=== PATIENT | female | born 1950 | race Caucasian/White ===

== ENCOUNTER 2019-10-07 10:51 | Outpatient (CLI) | payer MEDICARE, BC, SELFPAY ==
--- NOTE | 2019-10-07 | ECG_ITS ---
Measurements Intervals [place] Rate: 86 P: 57 WV: 175 QRS: 33 QRSD: 109 T: 42 QT: 378 QTc: 453 Interpretive Statements SINUS RHYTHM NORMAL ECG Electronically Signed On 10-07-2019 11:29:59 CDT by Sunadr Garcia D.O.
[2019-10-07 12:42] LABS: Blood Urea Nitrogen 10 mg/dL (7-17); Calcium 7.9 mg/dL (8.4-10.2); Carbon Dioxide 22 mmol/L (22-30); Chloride 96 mmol/L (98-107); Estimated Glomerular Filt Rate > 60; Glucose 95 mg/dL (65-105); Potassium 4.3 mmol/L (3.4-5.0); Sodium 131 mmol/L (137-145)
== END 2019-10-07 10:52 | disposition home or self-care (01) ==
PROVIDERS: PCP Internal Medicine; Visit Provider Podiatrist Foot & Ankle Surgery
DX: Z01.818 Encounter for other preprocedural examination (principal); R03.0 Elevated blood-pressure reading, without diagnosis of hypertension; E11.42 Type 2 diabetes mellitus with diabetic polyneuropathy
CPT/HCPCS: 36415; 80048; 93005

== ENCOUNTER 2019-12-20 10:03 | Outpatient (CLI) | payer MEDICARE, BC, SELFPAY ==
[2019-12-20 10:40] LABS: IFOB Positive Control Positive; Immunochemical Fecal Occult Bl Negative (N)
[2019-12-24 16:55] LABS: H pylori Ag Stool Not Detected (Not Detected)
== END 2019-12-20 10:04 | disposition home or self-care (01) ==
PROVIDERS: PCP Internal Medicine; Visit Provider Surgery
DX: R10.13 Epigastric pain (principal); Z87.19 Personal history of other diseases of the digestive system
CPT/HCPCS: 82274; 87338

== ENCOUNTER 2020-03-09 01:42 | Outpatient (CLI) | payer MEDICARE, BC, SELFPAY ==
[2020-03-09 18:20] LABS: SARS-CoV-2 RNA PCR Negative
== END 2020-03-09 01:43 | disposition home or self-care (01) ==
LOC: ANHCOVIDDT 01:43
PROVIDERS: PCP Internal Medicine; Visit Provider Internal Medicine Gastroenterology
DX: Z01.812 Encounter for preprocedural laboratory examination (principal); Z11.59 Encounter for screening for other viral diseases
CPT/HCPCS: 87635; C9803; U0003

== ENCOUNTER 2020-03-11 01:47 | Day surgery (SDC) | payer MEDICARE, BC, SELFPAY ==
[2020-03-03 15:47] VITALS: BMI 28.4
--- NOTE | 2020-03-11 10:03 | SUR.PREOP ---
PT INFORMED DR URENA WILL BE APPROXIMATELY 1 HR LATE
[2020-03-11 10:05] VITALS: BP 146/65; PULSE 75; RESP 18; TEMP 36.3; O2SAT 100
[2020-03-11] MEDS: LACTATED RINGERS 1,000 ML 150 ML IV CONT (10:23)
[2020-03-11 10:31] LABS: Glucose Point of Care 153 (65-105)
--- NOTE | 2020-03-11 11:52 | WPDANESEPPF ---
Anes - Initial Pre Proc Eval Procedure: Operation Date: 03/11/20 11:30 Proposed Procedures p Colonoscopy - Wolf Mendieta DO Date/Time: 03/11/20 11:52 Surgeon: Wolf Mendieta DO Pre Op Diagnosis: lower abd pain Patient Data Age: 69 Gender: F Height: 5 ft 6 in Weight: 80.6 kg Last Vital Signs Temp 97.3 F L 03/11/20 10:05 Pulse 75 03/11/20 10:05 Resp 18 03/11/20 10:05 BP 146/65 H 03/11/20 10:05 Pulse Ox 100 03/11/20 10:05 Allergies Allergy/AdvReac Type Severity Reaction Status Date / Time doxycycline Allergy Severe Tongue Verified 03/11/20 10:01 swelling adhesive Allergy Mild rash Verified 03/11/20 10:01 Influenza Virus Vaccines Allergy Mild Hives Verified 03/11/20 10:01 Sulfa (Sulfonamide Allergy Mild Hives Verified 03/11/20 10:01 Antibiotics) triamcinolone Allergy Mild Rash Verified 03/11/20 10:01 tramadol AdvReac nausea, Verified 03/11/20 10:01 dizziness Home Medications Medication Instructions Recorded Confirmed Type conjugated estrogens 0.45 mg tablet 0.45 mg PO DAILY 07/29/19 03/11/20 History oxybutynin chloride 10 mg 10 mg PO DAILY 07/29/19 03/11/20 History tablet,extended release 24 hr Synthroid 175 mcg tablet 175 mcg PO DAILY #90 tablet NS 10/30/19 03/11/20 Rx omeprazole 20 mg capsule,delayed 20 mg PO DAILY 12/17/19 03/11/20 History release glimepiride 4 mg tablet 4 mg PO BID #180 tablet 01/25/20 03/11/20 Rx metformin 1,000 mg tablet 1,000 mg PO BID #180 tablet 01/25/20 03/11/20 Rx hydrochlorothiazide 12.5 mg tablet 12.5 mg PO DAILY #90 tablet 02/03/20 03/11/20 Rx lisinopril 10 mg tablet 10 mg PO DAILY #90 tablet 02/03/20 03/11/20 Rx cetirizine 10 mg tablet 5 mg PO DAILY PRN 02/17/20 03/11/20 History famotidine 10 mg PO BID 03/03/20 03/11/20 History Laboratory Tests 03/11/20 10:29 POC Capillary Glucose 153 mg/dl H mg/dl (65-105) Patient hx anesthesia problems: none Family hx anesthesia problems: none PMFSH Social History Social History Smoking status: Never smoker Second hand tobacco smoke exposure: No Alcohol intake: current Substance use: never Anes - Eval Final PreProcedure Day of Procedure 03/11/20 11:52 Patient weight: normal Heart: regular rate and rhythm Lungs: clear to auscultation Airway: Mallampati scale class II Neurological: alert and oriented Last oral intake: >/= 8 hours ASA classification: III Emergent: no Anesthetic plan: proceed Anesthesia type and monitoring: general GIVS and standard monitoring Informed Consent: The patient's anesthetic plan and its attendant risks and benefits were discussed with the patient/family/POA. Questions were solicited and answers provided to the satisfaction of the patient/family/POA.
--- NOTE | 2020-03-11 12:22 | PM.IMHP ---
H&P: HPI History of Present Illness Date/Time: 03/11/20 12:22 Chief complaint: lower abd pain Narrative: Reason for visit colonoscopy. This very pleasant lady seen in consultation at the request of the primary. Impression: The video very pleasant lady with some chronic abdominal pain and alternating constipation and diarrhea. This compatible with a IBS. She does have a history adenomatous colon polyps and a family history of colorectal cancer. HTN. Diabetes mellitus. Peripheral neuropathy. Recommendation: Colonoscopy. History: This very pleasant lady's here for colonoscopy. She has a family history of colorectal cancer and a personal history of multiple adenomatous colon polyps. She had been having some lower abdominal discomfort which he described as aching and sharp in nature. She also has upper abdominal pain. The pain is unaffected by eating or defecation. She does have alternating constipation and diarrhea. The hematochezia, melena and acholic stools are denied. She is here for colonoscopy. Physical examination: General: very pleasant patient in no acute distress. HEENT: Head was normocephalic sclerae is clear mouth without masses neck was supple. Heart: Rate rhythm regular without S3 or S4. Lungs: CTA. Abdomen: Soft with no guarding or rigidity. Bowel sounds were active. Neurologic: Cranial nerves 2 through 12 intact. No focal defects. No clonus. Musculoskeletal system: Revealed no joint tenderness or swelling no muscle atrophy. Extremities: Reveal no significant edema. Skin: Warm and dry with normal turgor. Mental status: intact. Patient is alert and oriented. Review of Systems Review of Systems: All systems reviewed & are unremarkable except as noted in HPI and below PMFSH Past Medical History Medical History (Updated 03/11/20 @ 12:22 by Wolf Mendieta DO) Adenomatous colon polyp Diabetes mellitus Hypertension Hypothyroidism IBS (irritable bowel syndrome) Neuropathy Vitamin B 12 deficiency Surgical History Surgical History (Updated 03/11/20 @ 12:22 by Wolf Mendieta DO) H/O: hysterectomy History of esophagogastroduodenoscopy (EGD) History of thyroid surgery x2 Hx laparoscopic cholecystectomy Hx of colonoscopy Status post right foot surgery Social History Social History Smoking status: Never smoker Second hand tobacco smoke exposure: No Alcohol intake: current Substance use: never Meds Home Medications and Allergies Home Medications Medication Instructions Recorded Confirmed Type conjugated estrogens 0.45 mg tablet 0.45 mg PO DAILY 07/29/19 03/11/20 History oxybutynin chloride 10 mg 10 mg PO DAILY 07/29/19 03/11/20 History tablet,extended release 24 hr Synthroid 175 mcg tablet 175 mcg PO DAILY #90 tablet NS 10/30/19 03/11/20 Rx omeprazole 20 mg capsule,delayed 20 mg PO DAILY 12/17/19 03/11/20 History release glimepiride 4 mg tablet 4 mg PO BID #180 tablet 01/25/20 03/11/20 Rx metformin 1,000 mg tablet 1,000 mg PO BID #180 tablet 01/25/20 03/11/20 Rx hydrochlorothiazide 12.5 mg tablet 12.5 mg PO DAILY #90 tablet 02/03/20 03/11/20 Rx lisinopril 10 mg tablet 10 mg PO DAILY #90 tablet 02/03/20 03/11/20 Rx cetirizine 10 mg tablet 5 mg PO DAILY PRN 02/17/20 03/11/20 History famotidine 10 mg PO BID 03/03/20 03/11/20 History Allergies Allergy/AdvReac Type Severity Reaction Status Date / Time doxycycline Allergy Severe Tongue Verified 03/11/20 10:01 swelling adhesive Allergy Mild rash Verified 03/11/20 10:01 Influenza Virus Vaccines Allergy Mild Hives Verified 03/11/20 10:01 Sulfa (Sulfonamide Allergy Mild Hives Verified 03/11/20 10:01 Antibiotics) triamcinolone Allergy Mild Rash Verified 03/11/20 10:01 tramadol AdvReac nausea, Verified 03/11/20 10:01 dizziness Vital Signs Vital Signs - 24 hr 03/11/20 10:05 Temperature 36.3 C L Pulse Rate 75 Respi
[2020-03-11 12:45] VITALS: BP 124/67; PULSE 75; RESP 25; O2SAT 98
[2020-03-11 12:55] VITALS: BP 142/79; PULSE 72; RESP 17; O2SAT 99
[2020-03-11 13:05] VITALS: BP 137/77; PULSE 71; RESP 19; O2SAT 99
== END 2020-03-11 13:12 | disposition home or self-care (01) ==
PROVIDERS: PCP Internal Medicine; Visit Provider Internal Medicine Gastroenterology
PROC: 0DJD8ZZ Inspection of Lower Intestinal Tract, Via Natural or Artificial Opening Endoscopic (ICD-10-PCS; CPT 45378; principal; 2020-03-11 11:30)
DX: R10.9 Unspecified abdominal pain (principal); K64.8 Other hemorrhoids; R19.7 Diarrhea, unspecified; Z86.010 Personal history of colon polyps; Z80.0 Family history of malignant neoplasm of digestive organs; I10 Essential (primary) hypertension; E11.40 Type 2 diabetes mellitus with diabetic neuropathy, unspecified; E03.9 Hypothyroidism, unspecified; E53.8 Deficiency of other specified B group vitamins; Z79.84 Long term (current) use of oral hypoglycemic drugs
CPT/HCPCS: 45378; J2704; J7120

== ENCOUNTER 2020-03-17 00:45 | Outpatient (CLI) | payer MEDICARE, BC, SELFPAY ==
[2020-03-17 18:54] LABS: SARS-CoV-2 RNA PCR Negative
== END 2020-03-17 00:46 | disposition home or self-care (01) ==
LOC: ANHCOVIDDT 00:50
PROVIDERS: PCP Internal Medicine; Visit Provider Internal Medicine Gastroenterology
DX: Z01.812 Encounter for preprocedural laboratory examination (principal); Z20.828 Contact with and (suspected) exposure to other viral communicable diseases
CPT/HCPCS: 87635; C9803; U0003

== ENCOUNTER 2020-03-19 00:23 | Day surgery (SDC) | payer MEDICARE, BC, SELFPAY ==
[2020-03-06 13:58] VITALS: BMI 28.4
[2020-03-19 08:34] VITALS: BP 144/78; PULSE 75; RESP 16; TEMP 36.5; O2SAT 98; BMI 28.3
--- NOTE | 2020-03-19 08:46 | WPDHPUPDATE1 ---
History and Physical Update Update Date/Time: 03/19/20 08:46 History and Physical has been reviewed, including an updated exam of the patient. There are NO changes in the patient's condition. Risks, benefits, and alternatives have been discussed and questions answered. Patient agrees to proceed with procedure.
--- NOTE | 2020-03-19 09:05 | WPDANESEPPF ---
Anes - Initial Pre Proc Eval Procedure: Operation Date: 03/19/20 09:00 Proposed Procedures p Esophagogastroduodenoscopy - Wolf Mendieta DO Date/Time: 03/19/20 09:05 Surgeon: Wolf Mendieta DO Pre Op Diagnosis: GERD Patient Data Age: 69 Gender: F Height: 5 ft 6 in Weight: 79.8 kg Last Vital Signs Temp 97.7 F 03/19/20 08:34 Pulse 75 03/19/20 08:34 Resp 16 03/19/20 08:34 BP 144/78 H 03/19/20 08:34 Pulse Ox 98 03/19/20 08:34 Allergies Allergy/AdvReac Type Severity Reaction Status Date / Time doxycycline Allergy Severe Tongue Verified 03/19/20 08:32 swelling adhesive Allergy Mild rash Verified 03/19/20 08:32 Influenza Virus Vaccines Allergy Mild Hives Verified 03/19/20 08:32 Sulfa (Sulfonamide Allergy Mild Hives Verified 03/19/20 08:32 Antibiotics) triamcinolone Allergy Mild Rash Verified 03/19/20 08:32 tramadol AdvReac nausea, Verified 03/19/20 08:32 dizziness Home Medications Medication Instructions Recorded Confirmed Type conjugated estrogens 0.45 mg tablet 0.45 mg PO DAILY 07/29/19 03/11/20 History oxybutynin chloride 10 mg 10 mg PO DAILY 07/29/19 03/11/20 History tablet,extended release 24 hr Synthroid 175 mcg tablet 175 mcg PO DAILY #90 tablet NS 10/30/19 03/11/20 Rx omeprazole 20 mg capsule,delayed 20 mg PO DAILY 12/17/19 03/11/20 History release glimepiride 4 mg tablet 4 mg PO BID #180 tablet 01/25/20 03/11/20 Rx metformin 1,000 mg tablet 1,000 mg PO BID #180 tablet 01/25/20 03/11/20 Rx hydrochlorothiazide 12.5 mg tablet 12.5 mg PO DAILY #90 tablet 02/03/20 03/11/20 Rx lisinopril 10 mg tablet 10 mg PO DAILY #90 tablet 02/03/20 03/11/20 Rx cetirizine 10 mg tablet 5 mg PO DAILY PRN 02/17/20 03/11/20 History famotidine 10 mg PO BID 03/03/20 03/11/20 History Patient hx anesthesia problems: none Family hx anesthesia problems: none [facility] Past Medical History Medical History (Updated 03/11/20 @ 12:22 by Wolf Mendieta DO) Adenomatous colon polyp Diabetes mellitus Hypertension Hypothyroidism IBS (irritable bowel syndrome) Neuropathy Vitamin B 12 deficiency Surgical History Surgical History (Updated 03/11/20 @ 12:22 by Wolf Mendieta DO) H/O: hysterectomy History of esophagogastroduodenoscopy (EGD) History of thyroid surgery x2 Hx laparoscopic cholecystectomy Hx of colonoscopy Status post right foot surgery Social History Social History Smoking status: Never smoker Second hand tobacco smoke exposure: No Alcohol intake: current Substance use: never Anes - Eval Final PreProcedure Day of Procedure 03/19/20 09:05 Patient weight: normal Heart: regular rate and rhythm Lungs: clear to auscultation Airway: Mallampati scale class III Neurological: alert and oriented Last oral intake: >/= 8 hours ASA classification: III Emergent: no Anesthetic plan: proceed Anesthesia type and monitoring: general GIVS and standard monitoring Informed Consent: The patient's anesthetic plan and its attendant risks and benefits were discussed with the patient/family/POA. Questions were solicited and answers provided to the satisfaction of the patient/family/POA.
[2020-03-19] MEDS: LACTATED RINGERS 1,000 ML 150 ML IV CONT (09:13)
[2020-03-19 09:19] LABS: Glucose Point of Care 129 (65-105)
[2020-03-19] MEDS: BENZOCAINE (*SP) 60 ML SPRAY CAN (HURRICAINE) 1 SPRAY MUCOUS MEM (09:20)
[2020-03-19 09:32] VITALS: BP 141/77; PULSE 80; RESP 16; O2SAT 98
[2020-03-19 09:42] VITALS: BP 135/69; PULSE 76; RESP 16; O2SAT 99
[2020-03-19 09:52] VITALS: BP 144/75; PULSE 84; RESP 16; O2SAT 97
== END 2020-03-19 10:07 | disposition home or self-care (01) ==
PROVIDERS: PCP Internal Medicine; Visit Provider Internal Medicine Gastroenterology
PROC: 0DJ08ZZ Inspection of Upper Intestinal Tract, Via Natural or Artificial Opening Endoscopic (ICD-10-PCS; CPT 43235; principal; 2020-03-19 09:00)
DX: K29.70 Gastritis, unspecified, without bleeding (principal); I10 Essential (primary) hypertension; E11.9 Type 2 diabetes mellitus without complications; E03.9 Hypothyroidism, unspecified; G62.9 Polyneuropathy, unspecified; K58.9 Irritable bowel syndrome, unspecified; E53.8 Deficiency of other specified B group vitamins
CPT/HCPCS: 43239; 87081; 88305; J2704; J7120

== ENCOUNTER 2020-06-19 11:56 | Outpatient (CLI) | payer MEDICARE, BC, SELFPAY ==
[2020-06-19 14:40] LABS: Add Urine Microscopic? YES; Appearance Urine Cloudy (Clear); Bilirubin Urine Negative (Negative); Blood Urine 2+ (Negative); Color Urine Straw (Yellow); Glucose Urine UA 3+ mg/dL (Negative); Ketones Urine Trace mg/dL (Negative); Leukocyte Esterase Ur 3+ LEU/UL (Negative); Mucus Urine Rare /lpf; Nitrate Urine Negative (Negative); Protein Urine Negative (Negative); Specific Grav Ur 1.009 (1.001-1.035); Squamous Epithelial Cell Urine Few /hpf (Few); Urobilinogen Urine Negative mg/dL (<2.0); WBC Urine 51-75 /hpf
== END 2020-06-19 11:57 | disposition home or self-care (01) ==
PROVIDERS: PCP Internal Medicine; Visit Provider Internal Medicine
DX: R30.0 Dysuria (principal)
CPT/HCPCS: 81001; 87077; 87086; 87088; 87186

== ENCOUNTER 2020-09-25 07:20 | Outpatient (CLI) | payer MEDICARE, BC, SELFPAY ==
--- NOTE | 2020-09-25 07:29 | ECHO_ITS ---
Patient Info Name: Teresa Ragsdale Age: 70 years : 1950 Gender: Female Ht: 65 in Wt: 176 lbs BSA: 1.94 m2 HR: 82 bpm BP: 142 / 76 mmHg Technical Quality: Good Exam Date: 09/25/2020 7:39 AM Exam Location: [facility] Patient Status: Outpatient Admit Date: 09/25/2020 Staff Ordering Physician: Foster Madrigal DO [employer] Operator: Elisabeth Youngblood RDCS Attending Provider: Foster Madrigal DO Referring Physician: Rohan SEGOVIA; Exam Type: CA echo doppler color flow Study Info Indications R01.1 - Cardiac murmur, unspecified Complete two-dimensional, color flow and Doppler transthoracic echocardiogram is performed. Summary 1. Complete two-dimensional, color flow and Doppler transthoracic echocardiogram is performed. 2. Left ventricular chamber dimension is normal. 3. Left ventricular systolic function is normal, estimated at 60-65%. 4. The left ventricular diastolic function is grade I diastolic dysfunction. 5. E/e' 12 is mildly elevated. 6. Global longitudinal strain is normal at -19.5%. 7. There is mild mitral valve regurgitation. 8. No pulmonary hypertension, estimated pulmonary arterial systolic pressure is 32 mmHg. 9. There is trace pulmonic regurgitation. Left Ventricle E/e' 12 is mildly elevated. Global longitudinal strain is normal at -19.5%. Left ventricular chamber dimension is normal. Left ventricular systolic function is normal, estimated at 60-65%. The left ventricular diastolic function is grade I diastolic dysfunction. Right Ventricle Right ventricular chamber dimension is normal. Right ventricular systolic function is normal. Left Atria Left atrial chamber dimension is normal. Right Atria Right atrial chamber dimension is normal. Aortic Valve The aortic valve is trileaflet. There is no aortic valve stenosis. There is no aortic valve regurgitation. Pulmonic Valve There is trace pulmonic regurgitation. Mitral Valve There is no mitral valve stenosis. There is mild mitral valve regurgitation. Tricuspid Valve There is no tricuspid valve regurgitation. No pulmonary hypertension, estimated pulmonary arterial systolic pressure is 32 mmHg. Pericardium/Pleural There is no pericardial effusion. Inferior Vena Cava Normal inferior vena cava with >50% collapse upon inspiration consistent with normal right atrial pressure, 5 mmHg. Aorta The aortic root size at the sinus of Valsalva is normal. Left Ventricular Outflow Tract Name Value Normal LVOT 2D LVOT Diameter 2.0 cm LVOT Doppler LVOT Peak Gradient 4 mmHg LVOT Mean Gradient 2 mmHg LVOT VTI 22 cm LVOT VTI/AV VTI Ratio 0.8 LVOT Stroke Volume 68 ml LVOT CO 5.6 l/min LVOT CI 2.9 l/min/m2 Pulmonic Valve Name Value Normal
== END 2020-09-25 07:21 | disposition home or self-care (01) ==
PROVIDERS: PCP Internal Medicine; Visit Provider Internal Medicine
DX: R01.1 Cardiac murmur, unspecified (principal)
CPT/HCPCS: 93306

== ENCOUNTER 2020-10-20 22:42 | Emergency (ER) | payer MEDICARE, BC, SELFPAY ==
--- NOTE | ~2020-10-20 | CT_ITS ---
EXAMINATION: CT abdomen pelvis w con DATE: 10/21/2020 01:46 INDICATION: Abdominal pain TECHNIQUE: Computed tomography (CT) of the abdomen and pelvis was performed with 100 cc Omnipaque 350 intravenous contrast. The dose-length product was 874.14 mGy-cm. Automated exposure control and iter ative reconstruction technique were employed. COMPARISON: CT dated 08/05/2019 FINDINGS: Lung bases are unremarkable. Heart size is normal. No significant pleural or pericardial ef fusion. No significant vascular abnormality. No lymphadenopathy. Status post cholecystectomy with expected prominence of the bile ducts. The spleen, pancreas, adrenal glands and kidneys are unremarkable. Nonobstructive bowel gas pattern. Status post hysterectomy. No free air or free fluid. Bladder is unremarkable. Mild lumbar spondylosis. No acute osseous abnormalit y. IMPRESSION: 1. No acute abdominal abnormality. Reviewed, dictated and finalized at location A.
[2020-10-20 22:45] VITALS: BP 145/115; PULSE 103; RESP 20; TEMP 36.4; O2SAT 96
--- NOTE | 2020-10-20 23:55 | ECG_ITS ---
Measurements Intervals [place] Rate: 89 P: 13 NM: 166 QRS: -2 QRSD: 80 T: 21 QT: 351 QTc: 429 Interpretive Statements SINUS RHYTHM DELAYED PRECORDIAL R/S TRANSITION BORDERLINE ECG Electronically Signed On 10-21-2020 11:52:21 CDT by Sundar Garcia D.O.
[2020-10-21 00:16] VITALS: PULSE 96; RESP 20; O2SAT 96
[2020-10-21 00:34] VITALS: BP 149/69; PULSE 90; RESP 20; O2SAT 99
[2020-10-21] MEDS: SODIUM CHLORIDE 0.9% IV 1,000 ML 999 ML IV CONT (00:53)
[2020-10-21] MEDS: ONDANSETRON INJ 4 MG/2 ML VIAL IV PUSH (00:54)
[2020-10-21] MEDS: MORPHINE SULFATE (*CRX) 4 MG/ML INJ IV PUSH (00:54)
[2020-10-21 01:11] LABS: Basophils Absolute Auto 0.1 K/mm3 (0.0-0.1); Basophils Percent Auto 0.6 % (0.2-1.2); Eosinophils Absolute Auto 0.2 K/mm3 (0-0.3); Eosinophils Percent Auto 1.3 % (0-4.4); Hematocrit 36.6 % (37.0-47.0); Hemoglobin 11.8 g/dL (12.0-15.0); Immature Granulocyte Absolute 0.06 K/mm3 (0.00-0.031); Immature Granulocyte Percent A 0.4 % (0-0.5); Lymphocytes Absolute Auto 5.52 K/mm3 (0.9-3.2); Lymphocytes Percent Auto 41.2 % (18.3-44.2); Mean Corpuscular HGB Conc 32.2 g/dl (32-36); Mean Corpuscular Hemoglobin 26.1 pg (26-34); Mean Platelet Volume 8.6 fl (7.4-10.4); Monocytes Absolute Auto 1.1 K/mm3 (0.1-0.6); Monocytes Percent Auto 8.3 % (2.6-8.5); Neutrophils Absolute Auto 6.5 K/mm3 (1.3-6.7); Neutrophils Percent Auto 48.2 % (45.5-73.1); Platelet Count Result 384 k/mm3 (150-375); Red Blood Count 4.52 M/mm3 (4.2-5.4); Red Cell Distribution Width 14.9 % (11.5-14.5); White Blood Count 13.4 K/mm3 (4.5-10.0)
[2020-10-21 01:23] LABS: Alanine Aminotransferase 16 U/L (4-35); Albumin Level 4.1 g/dL (3.5-5.1); Alkaline Phosphatase 55 U/L (38-126); Anion Gap 10 mmol/L (8-16); Aspartate Amino Transferase 22 U/L (14-36); Bilirubin,Total 0.2 mg/dL (0.2-1.3); Blood Urea Nitrogen 28 mg/dL (7-17); Calcium 8.5 mg/dL (8.4-10.2); Carbon Dioxide 28 mmol/L (22-30); Chloride 94 mmol/L (98-107); Estimated CRCL calculation 75 ml/min; Estimated Glomerular Filt Rate > 60; Glucose 156 mg/dL (65-105); Lipase 253 U/L (23-300); Potassium 4.8 mmol/L (3.4-5.0); Sodium 132 mmol/L (137-145)
[2020-10-21 01:35] LABS: Troponin I < 0.012 ng/mL (0.000-0.034)
--- NOTE | 2020-10-21 01:53 | PC.NURSE ---
Pt to and from ct and is now back in room and resting on cart in its lowest position with call button and personal items within reach. Pt has no complaints or concerns voiced at this time. Spouse remains at bedside. Call button and personal items within reach. Advised to press call button for assistance. Pt requesting water; will ask EDMD.
--- NOTE | 2020-10-21 02:36 | ED.GENADULT ---
HPI - General Adult General Chief complaint: Abdominal Pain Stated complaint: sharp pains in my right side Time Seen by Provider: 10/20/20 23:23 History of Present Illness HPI narrative: Patient is 70-year-old female presents to emergency department with chief complaint of right-sided abdominal pain. Patient states that sharp radiates from her right lower quadrant to her back states it is not improved by anything reports not worsened by anything. Patient reports of a bit of nausea with no vomiting. Patient denies any diarrhea or changes in her bowel pattern. Related Data Home Medications Medication Instructions Recorded Confirmed conjugated estrogens 0.45 mg tablet 0.45 mg PO DAILY 07/29/19 09/01/20 oxybutynin chloride 10 mg 10 mg PO DAILY 07/29/19 09/01/20 tablet,extended release 24 hr omeprazole 20 mg capsule,delayed 20 mg PO DAILY 12/17/19 09/01/20 release cetirizine 10 mg tablet 5 mg PO DAILY PRN 02/17/20 09/01/20 famotidine 10 mg PO BID 03/03/20 03/11/20 Allergies Allergy/AdvReac Type Severity Reaction Status Date / Time doxycycline Allergy Severe Tongue Verified 09/01/20 09:20 swelling adhesive Allergy Mild rash Verified 09/01/20 09:20 Influenza Virus Vaccines Allergy Mild Hives Verified 09/01/20 09:20 Sulfa (Sulfonamide Allergy Mild Hives Verified 09/01/20 09:20 Antibiotics) triamcinolone Allergy Mild Rash Verified 09/01/20 09:20 tramadol AdvReac nausea, Verified 09/01/20 09:20 dizziness Review of Systems Review of Systems: Narrative: A 10 system review of systems was completed on the patient and is negative except for what is stated in the HPI. Nursing and ancillary documentation was reviewed. [facility] Past Medical History Medical History Adenomatous colon polyp Diabetes mellitus Hypertension Hypothyroidism IBS (irritable bowel syndrome) Neuropathy Vitamin B 12 deficiency Surgical History Surgical History H/O: hysterectomy History of esophagogastroduodenoscopy (EGD) History of thyroid surgery x2 Hx laparoscopic cholecystectomy Hx of colonoscopy Status post right foot surgery Family History Family History Mother Patient's mother is Diabetes mellitus Father Family history of lymphoma, Onset Age: 79 Patient's father is Colon cancer Malignant neoplasm of prostate Sibling Family history of malignant neoplasm of esophagus Grandparent Diabetes mellitus Other Diabetes mellitus Social History Social History Smoking status: Never smoker Second hand tobacco smoke exposure: No Alcohol intake: current Substance use: never Gender identity (if verbalized by the patient): Female Exam Narrative: Exam Narrative: GENERAL: Well-appearing, well-nourished, and in no acute distress. HEAD: Normocephalic, atraumatic. EYES: PERRLA and EOMI. ENT: Nares clear, no rhinorrhea or epistaxis. Mucous membranes moist. NECK: Supple. CHEST: Clear to auscultation. No respiratory distress. HEART: Regular rate and rhythm. No murmur heard. Normal peripheral pulses. ABDOMEN: Soft, nontender, nondistended, normal active bowel sounds. EXTREMITIES: Normal range of motion. No edema. SKIN: Warm, dry, no rash. NEURO: No focal deficits. Alert and oriented x3. PSYCH: Normal mood and affect. Course Vital Signs Vital signs: Vital Signs Temperature 36.4 C L 10/20/20 22:45 Pulse Rate 103 H 10/20/20 22:45 Respiratory Rate 20 10/20/20 22:45 Blood Pressure 145/115 H 10/20/20 22:45 Pulse Oximetry 96 10/20/20 22:45 Temperature 36.4 C L 10/20/20 22:45 Pulse Rate 87 10/21/20 02:48 Respiratory Rate 18 10/21/20 02:48 Blood Pressure 151/51 H 10/21/20 02:48 Pulse Oximetry 93 03
[2020-10-21 02:48] VITALS: BP 151/51; PULSE 87; RESP 18; O2SAT 93
--- NOTE | 2020-10-21 03:11 | PC.NURSE ---
EDMD at bedside to update pt on poc. All questions and concerns addressed. remains at bedside. Pt alert and oriented x4 and in no obvious distress at this time. Advised to press call button for assistance.
[2020-10-21 03:19] LABS: Add Urine Microscopic? YES; Appearance Urine Clear (Clear); Bilirubin Urine Negative (Negative); Blood Urine Negative (Negative); Color Urine Yellow (Yellow); Glucose Urine UA Negative (Negative); Ketones Urine Negative (Negative); Leukocyte Esterase Ur Trace LEU/UL (Negative); Mucus Urine Rare /lpf; Nitrate Urine Negative (Negative); Protein Urine Negative (Negative); RBC Urine 0-2 /hpf (0-2); Squamous Epithelial Cell Urine Occasional /hpf (Few); Urobilinogen Urine Negative mg/dL (<2.0); WBC Urine 0-3 /hpf
[2020-10-21 03:20] LABS: Specific Grav Ur > 1.060 (1.001-1.035)
[2020-10-21 04:09] LABS: Reflex Lactic Acid Yes or No Add Lactic
== END 2020-10-21 03:40 | disposition home or self-care (01) ==
PROVIDERS: Emergency Provider Emergency Medicine; PCP Internal Medicine
DX: R10.84 Generalized abdominal pain (principal); E11.40 Type 2 diabetes mellitus with diabetic neuropathy, unspecified; E03.9 Hypothyroidism, unspecified; K58.9 Irritable bowel syndrome, unspecified; E53.8 Deficiency of other specified B group vitamins; Z86.010 Personal history of colon polyps
CPT/HCPCS: 36415; 74177; 80053; 81001; 83605; 83690; 84484; 85025; 93005; 96361; 96374; 96375; 99284; J2270; J2405; J7030; Q9967

== ENCOUNTER → 2020-10-29 13:40 | Outpatient (CLI) | payer MEDICARE, BC, SELFPAY ==
--- NOTE | ~2020-10-29 | US_ITS ---
EXAMINATION: US transvaginal DATE: 10/29/2020 14:05 INDICATION: Pelvic pain Comparison:Ultrasound dated 07/22/2011 TECHNIQUE: Multiple endovaginal sonographic images of the pelvis performed. FINDINGS: The uterus is surgically absent. The ovaries are not visualized, likely atrophic. There is no free fluid in the pelvis. There are no abnormal masses seen on either side. IMPRESSION: 1. Unremarkable pelvic ultrasound post hysterectomy. Reviewed, dictated and finalized at location B.
== END ==
PROVIDERS: PCP Internal Medicine; Visit Provider Nurse Practitioner
DX: R10.2 Pelvic and perineal pain (principal)
CPT/HCPCS: 76830

== ENCOUNTER 2021-05-12 08:49 | Emergency (ER) | payer MEDICARE, BC, SELFPAY ==
[2021-05-12 09:02] VITALS: BP 126/68; PULSE 83; RESP 16; TEMP 36.5; O2SAT 99
--- NOTE | 2021-05-12 09:49 | ED.ALLEREA ---
HPI - Allergic Reaction General Chief complaint: Allergic Reaction Stated complaint: allergic reaction Time Seen by Provider: 05/12/21 09:49 Source: patient and RN notes reviewed Mode of arrival: ambulatory Limitations: no limitations History of Present Illness HPI narrative: 70-year-old female presents with concern for allergic reaction. Reports last night she woke up with swollen lips, swollen face, her left eye swollen shut. Reports she used an antibiotic drop to prepare for a cataract surgery she was supposed to have today. Reports the drug prescribed by her savings counselor. She reports a history of allergies to sulfa drugs. She was prescribed polymyxin sulfate with trimethoprim. She denies taking any medications such as Benadryl after her allergic reaction. Reports an episode of diarrhea yesterday after she is the eyedrops. She denies trouble swallowing, trouble breathing, does report swollen lip. MD complaint: allergic reaction Related Data Home Medications Medication Instructions Recorded Confirmed oxybutynin chloride 10 mg 10 mg PO DAILY 07/29/19 05/12/21 tablet,extended release 24 hr Allergies Allergy/AdvReac Type Severity Reaction Status Date / Time doxycycline Allergy Severe Tongue Verified 03/09/21 10:23 swelling adhesive Allergy Mild rash Verified 03/09/21 10:23 Sulfa (Sulfonamide Allergy Mild Hives Verified 03/09/21 10:23 Antibiotics) triamcinolone Allergy Mild Rash Verified 03/09/21 10:23 bacitracin Allergy Rash Verified 05/12/21 09:40 [From Neosporin ([id number])] neomycin Allergy Rash Verified 05/12/21 09:40 [From Neosporin ([id number])] polymyxin B Allergy Rash Verified 05/12/21 09:40 [From Neosporin ([id number])] tramadol AdvReac nausea, Verified 03/09/21 10:23 dizziness Review of Systems Review of Systems: CONSTITUTIONAL: Denies malaise, chills, sweats, or fever. EYES: Denies visual changes, redness, or discharge. Reports swollen itchy left eye ENT: Denies swollen swollen tongue. Reports swollen top lip, itchy throat CARDIOVASCULAR: Denies chest pain, palpitations, or edema. RESPIRATORY: Denies cough or dyspnea. GASTROINTESTINAL: Denies abdominal pain, nausea, vomiting. Reports diarrhea SKIN: Reports generalized itching without rash All systems reviewed & are unremarkable except as noted in HPI and below PMFSH Past Medical History Medical History Adenomatous colon polyp Diabetes mellitus Hypertension Hypothyroidism IBS (irritable bowel syndrome) Neuropathy Vitamin B 12 deficiency Surgical History Surgical History H/O: hysterectomy History of esophagogastroduodenoscopy (EGD) History of thyroid surgery x2 Hx laparoscopic cholecystectomy Hx of colonoscopy Status post right foot surgery Family History Family History Mother Patient's mother is Diabetes mellitus Father Family history of lymphoma, Onset Age: 79 Patient's father is Colon cancer Malignant neoplasm of prostate Sibling Family history of malignant neoplasm of esophagus Grandparent Diabetes mellitus Other Diabetes mellitus Social History Social History Smoking status: Never smoker Second hand tobacco smoke exposure: No Alcohol intake: current Alcohol use details: very rarely Substance use: never Gender identity (if verbalized by the patient): Female Comments At time of signature, agree with nursing past medical, surgical, social and family history. There is no relevant family history pertinent to the presenting complaint Exam Narrative: GENERAL: Well-appearing, well-nourished, and in no acute distress. HEAD: Normocephalic, atraumatic. EYES: PERRLA, sclera and
[2021-05-12] MEDS: diphenhydrAMINE HCl INJ 50 MG/ML VIAL IM (10:08)
== END 2021-05-12 10:30 | disposition home or self-care (01) ==
PROVIDERS: Emergency Provider Nurse Practitioner; PCP Internal Medicine
DX: R22.0 Localized swelling, mass and lump, head (principal); T49.5X5A Adverse effect of ophthalmological drugs and preparations, initial encounter; E11.9 Type 2 diabetes mellitus without complications; I10 Essential (primary) hypertension; E03.9 Hypothyroidism, unspecified; E11.40 Type 2 diabetes mellitus with diabetic neuropathy, unspecified
CPT/HCPCS: 96372; 99213; G0463; J1200

== ENCOUNTER → 2021-12-21 13:08 | Outpatient (CLI) | payer MEDICARE, BC, SELFPAY ==
--- NOTE | ~2021-12-21 | DEXA_ITS ---
Bone Density Report Name: ANGELA REYNOLDS Age: 71 Sex: Female Ethnicity: White Date of : 1950 Indication: postmenopausal; screening for osteoporosis; height loss; hysterectomy; Referring Provider: JAZMIN, JERILYN Study: Bone densitometry was performed. Exam Date: December 21, 2021 Accession number: [id number] Bone Density: Region BMD T-score Z-score Classification AP Spine (L1-L4) 1.333 2.6 4.9 Normal Femoral Neck (Left) 0.843 -0.1 1.9 Normal Total Hip (Left) 1.025 0.7 2.4 Normal Femoral Neck (Right) 0.838 -0.1 1.9 Normal Total Hip (Right) 1.044 0.8 2.5 Normal Total Hip Mean 1.035 0.8 2.5 Normal World Health Organization criteria for BMD impression classify patients as: Normal (T-score at or above -1.0), Osteopenia (T-score between -1.0 and -2.5), or Osteoporosis (T-score at or below -2.5). 10-year Fracture Risk: FRAX not reported because: All T-scores for Spine Total, Hip Total, Femoral Neck at or above -1.0 Treated for osteoporosis Clinical Information Provided by Patient: Is being treated for osteoporosis Has used the following medications: HRT (i.e. estrogen/hormone therapy), MULT VIT Has the following medical conditions: Hysterectomy Patient maximum height was 65.5 Menopause Age: 30 No regular weight bearing exercise Drinks caffeinated beverages Onset of menses at age 10 Number of children 1 Impression: The patient has normal bone mass. Discussion: It is important to ask patients whether they are taking their medications and to encourage continued and appropriate compliance with their osteoporosis therapies to reduce fracture risk. It is also important to review their risk factors and encourage appropriate calcium and vitamin D intakes, exercise, fall prevention and other lifestyle measures. Follow-Up: Consider a repeat BMD and Vertebral Fracture Assessment (VFA) exam in 2 years or sooner if medically necessary, to reassess this patient's status. Reported by: JEAN on 12/21/2021 1:36:00 PM. Reviewed, dictated and finalized at location A. BRAN
== END ==
PROVIDERS: PCP Internal Medicine; Visit Provider Nurse Practitioner
DX: Z78.0 Asymptomatic menopausal state (principal)
CPT/HCPCS: 77080

== ENCOUNTER → 2022-02-11 02:17 | Outpatient (CLI) | payer MEDICARE, BC, SELFPAY ==
[2022-02-11 17:30] LABS: SARS-CoV-2 RNA PCR Negative
== END ==
PROVIDERS: PCP Internal Medicine; Visit Provider Internal Medicine
DX: B34.9 Viral infection, unspecified (principal); Z20.822 Contact with and (suspected) exposure to COVID-19
CPT/HCPCS: C9803; U0003; U0005

== ENCOUNTER 2022-02-17 08:20 | Outpatient (CLI) | payer MEDICARE, BC, SELFPAY ==
--- NOTE | ~2022-02-17 | XR_ITS ---
XR chest 2V 02/17/2022 08:43 Indication: Cough and shortness of breath Procedure: 2 view chest Comparison: 08/08/2015 Findings: Heart size normal. Left basilar atelectasis. No focal pneumonia, edema, pleural effusion or pneumothorax. Impression: 1: Left basilar atelectasis. Reviewed, dictated and finalized at location L. Impression: 1: Left basilar atelectasis.
== END 2022-02-17 08:21 | disposition home or self-care (01) ==
PROVIDERS: PCP Internal Medicine; Visit Provider Internal Medicine
DX: R05.9 Cough, unspecified (principal); R91.8 Other nonspecific abnormal finding of lung field
CPT/HCPCS: 71046

== ENCOUNTER 2022-07-12 08:49 | Outpatient (CLI) | payer MEDICARE, BC, SELFPAY ==
--- NOTE | 2022-07-12 11:00 | NEURO_ITS ---
Impression: # Known diabetic complains of numbness of lower extremities. # Borderline neuropathy of axonal type. # Needle/EMG exam revealed neurogenic changes in the muscles. # Clinical correlation recommended. Motor Nerve Conduction Lower Extremities Peroneal Nerve Conduction Velocity (m/sec) Terminal Latency (msec) Response Voltage(mV) Popliteal space-Ankle Ankle Extensor Dig Brevis Popliteal space Ankle Right 40 4.3 1 2 Left 39 4.0 2 2 Tibial Nerve Conduction Velocity (m/sec) Terminal Latency (msec) Response Voltage(mV) Popliteal space-Ankle Ankle-Extensor Dig Brevis Popliteal space Ankle Right 41 4.8 1 2 Left 39 4.6 2 2 F-waves Peroneal Nerve (ms) Tibial Nerve (ms) Right 54.9 56.3 Left 55.4 56.3 Sensory Nerve Conduction Lower Extremities Sural Nerve Stimulation Terminal Latency (msec) Ankle Response Voltage (uV) Ankle Response Velocity (m/sec) Right 4.2 20 38 Left 4.6 9 35 Superficial Peroneal Nerve Stimulation Terminal Latency (msec) Ankle Response Voltage (uV) Ankle Response Velocity (m/sec) Right 4.2 6 38 Left NR NR NR Left Right Muscles Examined Fibrillation Fasciculation Scarcity Voltage Duration Left Right Left Right Left Right Left Right Left Right X X Ant Tibialis X X Gastroc X X Fibularis Long X X Flex Dig Long Reduced Reduced >12ms >12ms X X Ext Dig Brev Reduced Reduced >12ms >12ms Abd Hallucis Quadriceps Paraspinals MTDD
== END 2022-07-12 08:50 | disposition home or self-care (01) ==
LOC: ANHNEURO 08:51
PROVIDERS: PCP Internal Medicine; Visit Provider Internal Medicine
DX: M79.672 Pain in left foot (principal); M79.671 Pain in right foot; E11.9 Type 2 diabetes mellitus without complications
CPT/HCPCS: 95886; 95910

== ENCOUNTER 2022-09-14 11:42 | Outpatient (CLI) | payer MEDICARE, BC, SELFPAY ==
--- NOTE | ~2022-09-14 | XR_ITS ---
EXAM: XR hand LT min 3V DATE: 09/14/2022 12:04 HISTORY: M79.642Pain left hand, 1ST BASE OF METACARPAL PAIN, NO INJUR . COMPARISON: None available. FINDINGS: Normal mineralization. No fracture or dislocation. No lytic or blastic lesion. Typical ost eoarthritic changes noted in the DIP and PIP joints of the fingers, the interphalangeal joint of the thumb, the trapezium metacarpal joint, and to a lesser extent in the MCP joints of the fingers. Moore es are most pronounced in the trapeziometacarpal joint. No erosion or periosteal change. Soft tissues within normal limits. IMPRESSION: Polyarticular osteoarthritis of the left hand. Reviewed, dictated and finalized at location K. TABLE GROWER
== END 2022-09-14 11:43 | disposition home or self-care (01) ==
PROVIDERS: PCP Internal Medicine; Visit Provider Internal Medicine
DX: M19.042 Primary osteoarthritis, left hand (principal)
CPT/HCPCS: 73130

== ENCOUNTER 2023-02-24 00:55 | Day surgery (SDC) | payer MEDICARE, BC, SELFPAY ==
[2023-02-16 13:44] VITALS: BMI 28.9
[2023-02-24 10:37] VITALS: BP 159/74; PULSE 82; RESP 18; TEMP 36.1; O2SAT 82; BMI 28.3
[2023-02-24 10:45] LABS: Glucose Point of Care 145 mg/dl (65-105)
[2023-02-24] MEDS: LACTATED RINGERS 1,000 ML 150 ML IV CONT (10:51)
--- NOTE | 2023-02-24 11:17 | WPDANESEPPF ---
Anes - Initial Pre Proc Eval Procedure: Operation Date: 02/24/23 11:30 Proposed Procedures p Esophagogastroduodenoscopy & Colonoscopy - Wolf Siddiqui MD Date/Time: 02/24/23 11:17 Surgeon: Wolf Siddiqui MD Pre Op Diagnosis: Iron Deficiency Anemia Patient Data Age: 72 Gender: F Height: 1.65 m Weight: 77.3 kg Last Vital Signs Temp 96.9 F L 02/24/23 10:37 Pulse 82 02/24/23 10:37 Resp 18 02/24/23 10:37 BP 159/74 H 02/24/23 10:37 Pulse Ox 82 L 02/24/23 10:37 O2 Del Method Room Air 02/24/23 10:37 Allergies Allergy/AdvReac Type Severity Reaction Status Date / Time doxycycline Allergy Severe Tongue Verified 02/16/23 13:45 swelling adhesive Allergy Mild rash Verified 02/16/23 13:45 Sulfa (Sulfonamide Allergy Mild Hives Verified 02/16/23 13:45 Antibiotics) triamcinolone Allergy Mild Rash Verified 02/16/23 13:45 bacitracin Allergy Rash Verified 02/16/23 13:45 [From Neosporin ([id number])] neomycin Allergy Rash Verified 02/16/23 13:45 [From Neosporin ([id number])] polymyxin B Allergy Rash Verified 02/16/23 13:45 [From Neosporin ([id number])] tramadol AdvReac nausea, Verified 02/16/23 13:45 dizziness Home Medications Medication Instructions Recorded Confirmed Type oxybutynin chloride 10 mg 10 mg PO EVERY OTHER DAY 07/29/19 02/16/23 History tablet,extended release 24 hr ferrous sulfate 325 mg (65 mg 325 mg PO BID #180 tabs 10/13/21 02/16/23 Rx iron) tablet multivitamin 1 tablet PO DAILY 10/13/21 02/16/23 History omeprazole magnesium 10 mg oral 10 mg PO DAILY 10/13/21 02/16/23 History suspension,delayed release (Prilosec) glimepiride 4 mg tablet 4 mg PO BID #180 tabs 07/13/22 02/16/23 Rx hydrochlorothiazide 12.5 mg tablet 12.5 mg PO DAILY #90 tabs 07/13/22 02/16/23 Rx lisinopril 20 mg tablet 20 mg PO DAILY #90 tabs 07/13/22 02/16/23 Rx metformin 1,000 mg tablet 1,000 mg PO BID #180 tabs 07/13/22 02/16/23 Rx cetirizine 10 mg tablet 10 mg PO DAILY PRN Allergy Symptoms 02/01/23 02/16/23 History empagliflozin 10 mg tablet 10 mg PO QAM #90 tabs 02/01/23 02/16/23 Rx (Jardiance) vitamin B complex (B 1 tablet PO DAILY 02/01/23 02/16/23 History Complex-Vitamin B12 tablet) levothyroxine 137 mcg tablet 137 mcg PO DAILY 02/16/23 02/16/23 History Laboratory Tests 02/24/23 10:43 POC Capillary Glucose 145 H mg/dl (65-105) Patient hx anesthesia problems: none Family hx anesthesia problems: none Results Review: All pre-operative results and documents have been reviewed as part of the pre-operative evaluation. COUNTS INCLUDE 234 BEDS AT THE [facility] Past Medical History Medical History (Updated 02/14/23 @ 10:27 by Thea Purcell APRN) Adenomatous colon polyp Diabetes mellitus GERD (gastroesophageal reflux disease) Hx of adenomatous colonic polyps Hypertension Hypothyroidism IBS (irritable bowel syndrome) NICOLE (iron deficiency anemia) Neuropathy Vitamin B 12 deficiency Surgical History Surgical History H/O: hysterectomy History of esophagogastroduodenoscopy (EGD) History of thyroid surgery x2 Hx laparoscopic cholecystectomy Hx of colonoscopy Status post right foot surgery Family History Family History Mother Patient's mother is Diabetes mellitus Father Family history of lymphoma, Onset Age: 79 Patient's father is Colon cancer Malignant neoplasm of prostate Sibling Family history of malignant neoplasm of esophagus Grandparent Diabetes mellitus Other Diabetes mellitus Social History Social History Smoking status: Never smoker Second hand tobacco smoke exposure: No Alcohol intake: current Alcohol use details: very rarely Substance use: never Substance use type: does not use Lack of Stephenson
--- NOTE | 2023-02-24 11:23 | WPDHPUPDATE1 ---
History and Physical Update Update Date/Time: 02/24/23 11:23 History and Physical has been reviewed, including an updated exam of the patient. There are NO changes in the patient's condition. Risks, benefits, and alternatives have been discussed and questions answered. Patient agrees to proceed with procedure.
--- NOTE | 2023-02-24 11:49 | SUR.OPER ---
EGD: start 11:36, end 11:40 Colon: start 11:46, end 11:58
[2023-02-24 12:00] VITALS: BP 113/62; PULSE 85; RESP 23; O2SAT 97
[2023-02-24 12:10] VITALS: BP 121/72; PULSE 80; RESP 23; O2SAT 99
[2023-02-24 12:20] VITALS: BP 144/85; PULSE 82; RESP 20; O2SAT 99
== END 2023-02-24 12:34 | disposition home or self-care (01) ==
PROVIDERS: PCP Internal Medicine; Visit Provider Internal Medicine Gastroenterology
PROC: 0DJ08ZZ Inspection of Upper Intestinal Tract, Via Natural or Artificial Opening Endoscopic (ICD-10-PCS; CPT 43235; principal; 2023-02-24 11:30)
DX: D50.9 Iron deficiency anemia, unspecified (principal); K64.8 Other hemorrhoids; I10 Essential (primary) hypertension; E03.9 Hypothyroidism, unspecified; E11.40 Type 2 diabetes mellitus with diabetic neuropathy, unspecified; K21.9 Gastro-esophageal reflux disease without esophagitis; E53.8 Deficiency of other specified B group vitamins; Z79.84 Long term (current) use of oral hypoglycemic drugs
CPT/HCPCS: 45378; 43239; 82948; 88305; J2704; J7120

== ENCOUNTER 2023-04-11 08:19 | Outpatient (CLI) | payer MEDICARE, BC, SELFPAY ==
--- NOTE | ~2023-04-11 | XR_ITS ---
EXAMINATION: XR small bowel follow through DATE: 04/11/2023 12:05 INDICATION: Iron deficiency anemia, unspecified. TECHNIQUE: Oral contrast was administered, and a time course of radiographs of the abdomen was obtain ed. Fluoroscopy of the small bowel was performed. Fluoroscopy exposure time was 0.1 minutes. The tota l number of images was 18. COMPARISON: CT abdomen and pelvis 10/21/2020 FINDINGS: There are no dilated loops of bowel. There is no abnormal mass or stricture. The terminal ileum is no rmal. Transit time from the stomach to proximal colon was approximately 3 hours. Surgical clips in th e right upper quadrant are likely from cholecystectomy. IMPRESSION: 1. Normal small bowel series. Reviewed, dictated and finalized at location A.
== END 2023-04-11 08:20 | disposition home or self-care (01) ==
PROVIDERS: PCP Internal Medicine; Visit Provider Internal Medicine Gastroenterology
DX: D50.9 Iron deficiency anemia, unspecified (principal)
CPT/HCPCS: 74250

== ENCOUNTER 2024-03-10 14:04 | Emergency (ER) | payer MEDICARE, BC, SELFPAY ==
--- NOTE | 2024-03-10 14:06 | ED.URI ---
HPI - URI/Sore Throat General Chief Complaint: Upper Respiratory Infection Stated Complaint: SORE THROAT/COUGH/SINUS DRAINAGE/SOB Time Seen by Provider: 03/10/24 14:30 Source: patient, RN notes reviewed and old records reviewed Mode of arrival: ambulatory Limitations: no limitations History of Present Illness HPI Narrative: 73-year-old female presents to the [facility] with complaints of sore throat, cough, sinus drainage and fatigue since Monday, 2 days. States that she has taking Coricidin which has helped. Had similar symptoms but not as bad 2 weeks ago, Sent in a prescription for azithromycin Onset (ago): day(s) (2) Related Data Home Medications Medication Instructions Recorded Confirmed oxybutynin chloride 10 mg 10 mg PO EVERY OTHER DAY 07/29/19 03/10/24 tablet,extended release 24 hr multivitamin 1 tablet PO DAILY 10/13/21 03/10/24 omeprazole magnesium 10 mg oral 10 mg PO DAILY 10/13/21 03/10/24 suspension,delayed release (Prilosec) cetirizine 10 mg tablet 10 mg PO DAILY PRN Allergy Symptoms 02/01/23 03/10/24 vitamin B complex (B 1 tablet PO DAILY 02/01/23 03/10/24 Complex-Vitamin B12 tablet) Allergies Allergy/AdvReac Type Severity Reaction Status Date / Time doxycycline Allergy Severe Tongue Verified 03/10/24 14:15 swelling adhesive Allergy Mild rash Verified 03/10/24 14:15 Sulfa (Sulfonamide Allergy Mild Hives Verified 03/10/24 14:15 Antibiotics) triamcinolone Allergy Mild Rash Verified 03/10/24 14:15 bacitracin Allergy Rash Verified 03/10/24 14:15 [From Neosporin ([id number])] neomycin Allergy Rash Verified 03/10/24 14:15 [From Neosporin ([id number])] polymyxin B Allergy Rash Verified 03/10/24 14:15 [From Neosporin ([id number])] tramadol AdvReac nausea, Verified 03/10/24 14:15 dizziness Review of Systems Review of Systems: All systems reviewed & are unremarkable except as noted in HPI and below Constitutional: Constitutional: Reports as per HPI, Reports body ache(s), Reports chills and Reports fatigue Eyes: Eyes: Reports no additional eye complaints ENT: Reports as per HPI Cardiovascular: Cardiovascular: Reports no additional cardiovascular complaints, Denies chest pain and Denies dyspnea Respiratory: Respiratory: Reports as per HPI, Denies chest congestion, Reports cough and Denies dyspnea Gastrointestinal: Gastrointestinal: Reports no additional gastrointestinal complaints, Denies abdominal pain, Denies nausea and Denies vomiting Musculoskeletal: Musculoskeletal: Reports no additional musculoskeletal complaints Integumentary/Breasts: Skin/Breast: Reports system reviewed and no additional complaints, except as docu Neurologic: Reports system reviewed and no additional complaints, except as documented Psychiatric: Psychiatric: Reports no additional psychiatric complaints Allergic/Immunologic: Allergic/Immunologic: Reports no additional allergic/immunologic complaints [facility] Past Medical History Medical History Adenomatous colon polyp Diabetes mellitus GERD (gastroesophageal reflux disease) Hx of adenomatous colonic polyps Hypertension Hypothyroidism IBS (irritable bowel syndrome) NICOLE (iron deficiency anemia) Neuropathy Vitamin B 12 deficiency Surgical History Surgical History H/O: hysterectomy History of esophagogastroduodenoscopy (EGD) History of thyroid surgery x2 Hx laparoscopic cholecystectomy Hx of colonoscopy Status post right foot surgery Family History Family History Mother Patient's mother is Diabetes mellitus Father Family history of lymphoma, Onset Age: 79 Patient's father is Colon cancer Malignant neoplasm of prostate Sibling Family history of malignant neoplasm of esophagus Grandparent
[2024-03-10 14:19] VITALS: BP 134/65; PULSE 81; RESP 16; TEMP 36.9; O2SAT 100
== END 2024-03-10 14:53 | disposition home or self-care (01) ==
PROVIDERS: Emergency Provider Nurse Practitioner; PCP Internal Medicine
DX: U07.1 COVID-19 (principal); E11.9 Type 2 diabetes mellitus without complications; K21.9 Gastro-esophageal reflux disease without esophagitis; I10 Essential (primary) hypertension; E03.9 Hypothyroidism, unspecified; E53.8 Deficiency of other specified B group vitamins; G62.9 Polyneuropathy, unspecified; D50.9 Iron deficiency anemia, unspecified
CPT/HCPCS: 87426; 99212; G0463

== ENCOUNTER 2024-09-23 15:50 | Emergency (ER) | payer MEDICARE, BC, SELFPAY ==
--- NOTE | ~2024-09-23 | XR_ITS ---
CHEST RADIOGRAPH, PA AND LATERAL CLINICAL HISTORY: non-prod cough x 1 month . COMPARISON: 02/17/2022 TECHNIQUE: PA and lateral views of the chest. FINDINGS The cardiomediastinal silhouette is unremarkable. The lungs are clear. Fixation hardware within the lower cervical spine. IMPRESSION: No focal infiltrate or effusion. Reviewed, dictated and finalized at location A. TRY OFFAL ICER
--- NOTE | 2024-09-23 15:58 | ED.URI ---
HPI - URI/Sore Throat General Chief Complaint: Upper Respiratory Infection Stated Complaint: Cough Time Seen by Provider: 09/23/24 16:10 Source: patient Mode of arrival: ambulatory Limitations: no limitations History of Present Illness HPI Narrative: Teresa is a 74-year-old female patient presenting to the clinic today with complaints of nonproductive cough x1 month. Denies runny nose or sore throat. Is clearing her throat a lot in the clinic. Denies any chest pain or shortness of breath. Has been taking Tessalon Perles without relief. MD elicited complaint: cough Related Data Home Medications ?Medication ?Instructions ?Recorded ?Confirmed ?Last Taken ?Type oxybutynin chloride 10 mg 10 mg PO EVERY OTHER DAY 07/29/19 04/16/24 03/18/20 History tablet,extended release 24 hr multivitamin 1 tablet PO DAILY 10/13/21 04/16/24 Unknown History omeprazole magnesium 10 mg oral 10 mg PO DAILY 10/13/21 04/16/24 Unknown History suspension,delayed release (Prilosec) cetirizine 10 mg tablet 10 mg PO DAILY PRN Allergy Symptoms 02/01/23 04/16/24 Unknown History vitamin B complex (B 1 tablet PO DAILY 02/01/23 04/16/24 Unknown History Complex-Vitamin B12 tablet) Allergies Allergy/AdvReac Type Severity Reaction Status Date / Time doxycycline Allergy Severe Tongue Verified 09/23/24 16:05 swelling adhesive Allergy Mild rash Verified 09/23/24 16:05 Sulfa (Sulfonamide Allergy Mild Hives Verified 09/23/24 16:05 Antibiotics) triamcinolone Allergy Mild Rash Verified 09/23/24 16:05 bacitracin (From Neosporin Allergy Rash Verified 09/23/24 16:05 ([id number])) neomycin (From Neosporin Allergy Rash Verified 09/23/24 16:05 ([id number])) polymyxin B (From Neosporin Allergy Rash Verified 09/23/24 16:05 ([id number])) tramadol AdvReac nausea, Verified 09/23/24 16:05 dizziness Review of Systems Review of Systems: Pertinent positives per HPI. Patient denies any fever, chills, rash, headache, visual changes, dizziness, shortness of breath, chest pain, palpitations, nausea, vomiting, diarrhea, constipation, abdominal pain, or any urinary issues. [facility] Past Medical History Medical History Adenomatous colon polyp Diabetes mellitus GERD (gastroesophageal reflux disease) Hx of adenomatous colonic polyps Hypertension Hypothyroidism IBS (irritable bowel syndrome) NICOLE (iron deficiency anemia) Neuropathy Vitamin B 12 deficiency Surgical History Surgical History Hx of colonoscopy History of esophagogastroduodenoscopy (EGD) Status post right foot surgery H/O: hysterectomy History of thyroid surgery x2 Hx laparoscopic cholecystectomy Family History Family History Mother Patient's mother is Diabetes mellitus Father Family history of lymphoma, Onset Age: 79 Patient's father is Colon cancer Malignant neoplasm of prostate Sibling Family history of malignant neoplasm of esophagus Grandparent Diabetes mellitus Other Diabetes mellitus Social History Social History Smoking status: Never smoker Second hand tobacco smoke exposure: No Alcohol intake: current Alcohol use details: very rarely Substance use: never Substance use type: does not use Lack of Transportation: No Lack of Food: Never True Current Housing: I Have Housing Concerned About Future Housing: No Difficulty Paying Gas/Electric Bills: No Difficulty Paying for Meds: No Currently Unemployed: No Education: Associate Degree Difficulty w/ Childcare or Family Care: No Living arrangements: with family Gender identity (if verbalized by the patient): Female Spiritual care concerns: No Comments At the time of my signature, I reviewed and agree with the nursing past medical, surgical, social, and family history. There is no relevant family history pertinent to the patient complaint. Exam Narrative: General: Well-developed, well nourished, in no apparent distress Head: Normocephalic, atraumatic Eyes: Pupils equally round and reactive to light bilaterally, EOM intact, sclera and conjunctive clear, no discharge, lids normal Ears: TMs intact and clear, ear canals clear, no drainage, grossly hearing normal. Nose: Nares patent, clear nasal discharge, no inflammation, no sinus tenderness. Mouth: Oral pharynx without lesions or masses, good dentition, MMM. Postnasal drip Neck: Supple, trachea midline, no enlargement of anterior or posterior cervical nodes, no thyroid masses or goiter palpable. Cardio: Regular rate and rhythm, s1 and s2 normal, no murmur appreciated. Resp: Clear to auscultation bilaterally, no rhonchi, rales, wheezing or rubs Course Course Emergency Course: Portions of this record may have been created with voice recognition software. Level of Care: Express Care Visit Vital Signs Vital signs: Vital Signs Temperature 36.3 C L 09/23/24 16:01 Pulse Rate 86 09/23/24 16:01 Respiratory Rate 16 09/23/24 16:01 Blood Pressure 138/63 09/23/24 16:01 Pulse Oximetry 100 09/23/24 16:01 Temperature 36.3 C L 09/23/24 16:01 Pulse Rate 86 09/23/24 16:01 Respiratory Rate 16 09/23/24 16:01 Blood Pressure 138/63 09/23/24 16:01 Pulse Oximetry 100 09/23/24 16:01 Oxygen Delivery Room Air 09/23/24 16:05 Vital signs reviewed MDM - URI/Sore Throat MDM Narrative Medical decision making narrative: At the time of visit patient is resting comfortably on the exam table. Patient appears to be nontoxic. Diagnostic: Chest x-rays negative for any acute cardiopulmonary process. Plan: I suspect patient has postnasal drip likely causing her acute cough. Prescription for prednisone was sent to the pharmacy. Supportive measures were discussed with the patient and they voiced understanding discharge instructions and agrees to treatment plan. Return precautions reviewed Differential Diagnosis Differential diagnosis: Likely upper respiratory infection, otitis media, sinusitis, viral infection, bronchitis, influenza, pharyngitis and other (COVID) Discharge Plan Discharge Clinical Impression: Acute cough, PND (post-nasal drip) Patient Disposition: Home, Self-Care Condition: Stable Instructions: Antibiotic Form, Acute Cough (ED), Postnasal Drip (DC) Additional Instructions: Chest x-rays negative for any acute cardiopulmonary process. Take prescription medications only as prescribed-prednisone Increase fluids and stay well hydrated Tylenol/motrin for pain/fever Flonase and OTC antihistamines as directed Vicks vapor rub to open sinuses Sinus rinses for congestion Cepacol spray, cough drops, throat lozenges, warm tea with honey/lemon, gargle salt water to soothe throat BRAT diet for diarrhea Clear liquids x 24 hours then advance as tolerated for nausea/vomiting Go to the ED if you develop a worsening in your condition- high fever not controlled by Tylenol or Motrin, dehydration, weakness, lethargy, shortness of breath, or chest pain. Follow up with your PCP in 3-5 days if symptoms persist. Patient Language: Italian Prescriptions: New prednisone 20 mg tablet 40 mg PO DAILY 5 Days Qty: 10 0RF No Action oxybutynin chloride 10 mg tablet extended release 24hr 10 mg PO EVERY OTHER DAY Prilosec 10 mg susp,delayed release for recon 10 mg PO DAILY multivitamin Tablet 1 tablet PO DAILY ferrous sulfate 325 mg (65 mg iron) tablet 325 mg PO BID Qty: 180 1RF vitamin B complex [B Complex-Vitamin B12] Tablet 1 tablet PO DAILY cetirizine 10 mg tablet 10 mg PO DAILY PRN (Reason: Allergy Symptoms) Jardiance 10 mg tablet 10 mg PO QAM Qty: 90 3RF (DME) BD Luer-Olya Syringe 3 mL 25 gauge x 1 syringe See Rx Instructions .Route Qty: 20 1RF Rx Instructions: As directed hydrochlorothiazide 12.5 mg tablet 12.5 mg PO DAILY Qty: 90 2RF metformin 1,000 mg tablet 1,000 mg PO BID Qty: 180 2RF glimepiride 4 mg tablet 4 mg PO BID Qty: 180 2RF cyanocobalamin (vitamin B-12) 1,000 mcg/mL solution 1,000 mcg subcut .every 2 weeks Qty: 12 1RF fenofibrate 160 mg tablet 160 mg PO DAILY Qty: 90 1RF rosuvastatin 5 mg tablet 5 mg PO DAILY Qty: 90 1RF levothyroxine 137 mcg tablet 137 mcg PO DAILY Qty: 90 2RF Mounjaro 5 mg/0.5 mL pen injector 5 mg subcut WEEKLY Qty: 2 5RF benzonatate 200 mg capsule 200 mg PO TID PRN (Reason: cough) Qty: 30 0RF lisinopril 20 mg tablet 20 mg PO DAILY Qty: 90 3RF Follow-up/Referrals: PHYSICIAN,SOLUTIONS ENGINEER [Primary Care Provider] - Time of Disposition: 16:37 Quality NIHSS Nursing Documentation ED NIHSS nursing documentation: reviewed/agree
[2024-09-23 16:01] VITALS: BP 138/63; PULSE 86; RESP 16; TEMP 36.3; O2SAT 100
== END 2024-09-23 16:39 | disposition home or self-care (01) ==
PROVIDERS: Emergency Provider Nurse Practitioner Family
DX: R05.1 Acute cough (principal); R09.82 Postnasal drip; K21.9 Gastro-esophageal reflux disease without esophagitis; I10 Essential (primary) hypertension; E03.9 Hypothyroidism, unspecified; E11.42 Type 2 diabetes mellitus with diabetic polyneuropathy; Z79.84 Long term (current) use of oral hypoglycemic drugs; D50.9 Iron deficiency anemia, unspecified; E53.8 Deficiency of other specified B group vitamins
CPT/HCPCS: 71046; 99213; G0463

== ENCOUNTER 2024-11-21 18:41 | Emergency (ER) | payer MEDICARE, BC, SELFPAY ==
[2024-11-21 18:56] VITALS: BP 130/52; PULSE 97; RESP 16; TEMP 36.5; O2SAT 99
--- NOTE | 2024-11-21 18:57 | ED.URI ---
HPI - URI/Sore Throat General Chief Complaint: Upper Respiratory Infection Stated Complaint: COUGH/HEADACHE/LOSING VOICE/SORE THROAT Time Seen by Provider: 11/21/24 18:55 Source: patient Mode of arrival: ambulatory Limitations: no limitations History of Present Illness HPI Narrative: Patient presents today complaining of a sore throat, productive cough, dizziness, and headache x 2 days. Denies congestion, shortness of breath, or difficulty swallowing. Related Data Home Medications ?Medication ?Instructions ?Recorded ?Confirmed ?Last Taken ?Type oxybutynin chloride 10 mg 10 mg PO EVERY OTHER DAY 07/29/19 11/21/24 03/18/20 History tablet,extended release 24 hr multivitamin 1 tablet PO DAILY 10/13/21 11/21/24 Unknown History omeprazole magnesium 10 mg oral 10 mg PO DAILY 10/13/21 11/21/24 Unknown History suspension,delayed release (Prilosec) cetirizine 10 mg tablet 10 mg PO DAILY PRN Allergy Symptoms 02/01/23 10/22/24 Unknown History vitamin B complex (B 1 tablet PO DAILY 02/01/23 11/21/24 Unknown History Complex-Vitamin B12 tablet) Allergies Allergy/AdvReac Type Severity Reaction Status Date / Time doxycycline Allergy Severe Tongue Verified 11/21/24 18:53 swelling adhesive Allergy Mild rash Verified 11/21/24 18:53 Sulfa (Sulfonamide Allergy Mild Hives Verified 11/21/24 18:53 Antibiotics) triamcinolone Allergy Mild Rash Verified 11/21/24 18:53 bacitracin (From Neosporin Allergy Rash Verified 11/21/24 18:53 ([id number])) neomycin (From Neosporin Allergy Rash Verified 11/21/24 18:53 ([id number])) polymyxin B (From Neosporin Allergy Rash Verified 11/21/24 18:53 ([id number])) tramadol AdvReac nausea, Verified 11/21/24 18:53 dizziness Review of Systems Review of Systems: CONSTITUTIONAL: Denies body aches, fever, chills, or sweats. EYES: Denies visual changes, redness, or discharge. ENT: Denies rhinorrhea, congestion, or otalgia. Reports sore throat. CARDIOVASCULAR: Denies chest pain, palpitations, or edema. RESPIRATORY: Reports cough. Denies dyspnea. GASTROINTESTINAL: Denies abdominal pain, nausea, vomiting, or diarrhea. GENITOURINARY: Denies dysuria or hematuria. SKIN: Denies rash, itching, or wounds. MUSCULOSKELETAL: Denies back pain, joint pain, or myalgia. NEUROLOGIC: Denies numbness, tingling, or weakness. Reports headache. PSYCH: Denies depression or anxiety. All systems reviewed & are unremarkable except as noted in HPI and below PMFSH Past Medical History Medical History Dysuria Welcome to Medicare preventive visit Type 2 diabetes mellitus without complications Skin lesion Pure hypercholesterolemia, unspecified Pure hypercholesterolemia Peptic ulcer Other fatigue Neck pain Hx of colonic polyps Gastro-esophageal reflux disease without esophagitis Essential (primary) hypertension GERD (gastroesophageal reflux disease) Hx of adenomatous colonic polyps NICOLE (iron deficiency anemia) Neuropathy Vitamin B 12 deficiency IBS (irritable bowel syndrome) Adenomatous colon polyp Hypertension Diabetes mellitus Hypothyroidism Surgical History Surgical History Hx of colonoscopy History of esophagogastroduodenoscopy (EGD) Status post right foot surgery H/O: hysterectomy History of thyroid surgery x2 Hx laparoscopic cholecystectomy Family History Family History Mother Diabetes mellitus Father Family history of lymphoma, Onset Age: 79 Colon cancer Malignant neoplasm of prostate Sibling Family history of malignant neoplasm of esophagus Grandparent Diabetes mellitus Other Diabetes mellitus Social History Social History (Updated 10/22/24 @ 08:56 by PJ Denise) Smoking status: Never smoker Second hand tobacco smoke exposure: Yes Alcohol intake: current Alcohol use details: very rarely Substance use: never Substance use type: does not use Do You Feel Safe in your Home?: Yes Lack of Transportation: No Lack of Food: Never True Current Housing: I Have Housing Concerned About Future Housing: No Difficulty Paying Gas/Electric Bills: No Difficulty Paying for Meds: No Currently Unemployed: No Education: Associate Degree Difficulty w/ Childcare or Family Care: No Living arrangements: with family Occupation/Education: retired Additional occupation/education comments: accounting Gender identity (if verbalized by the patient): Female Spiritual care concerns: No Comments At time of signature, I have reviewed and agree with nursing past medical, surgical, social and family history unless otherwise noted. Please see nursing chart for further information. There is no relevant family history pertinent to the presenting complaint. Exam Narrative: GENERAL: Well-appearing, well-nourished, and in no acute distress. EYES: EOMI. No redness or drainage. Conjunctivae normal. ENT: Mucous membranes pink and moist. Nares clear. No rhinorrhea. TMs normal bilaterally. Throat Erythematous with no tonsillar exudate, uvula midline. NECK: Normal AROM. Supple. No lymphadenopathy. CHEST: No respiratory distress. Clear to auscultation. HEART: Regular rate and rhythm. No murmur appreciated. Normal peripheral pulses. ABDOMEN: Soft, nontender, nondistended, normal active bowel sounds. SKIN: Warm, dry, no rash. Capillary refill normal. Normal skin turgor. NEURO: No focal deficits. Alert and oriented x3. Gait steady. PSYCH: Normal affect. No signs of depression or anxiety. Course Course Level of Care: Express Care Visit Vital Signs Vital signs: Vital Signs Temperature 97.7 F 11/21/24 18:56 Pulse Rate 97 11/21/24 18:56 Respiratory Rate 16 11/21/24 18:56 Blood Pressure 130/52 L 11/21/24 18:56 Pulse Oximetry 99 11/21/24 18:56 Temperature 97.7 F 11/21/24 18:56 Pulse Rate 97 11/21/24 18:56 Respiratory Rate 16 11/21/24 18:56 Blood Pressure 130/52 L 11/21/24 18:56 Pulse Oximetry 99 11/21/24 18:56 Reviewed. MDM - URI/Sore Throat MDM Narrative Medical decision making narrative: Discussed physical exam findings. Steroids given for cough. Offered benzonatate, but patient declined. Advised supportive measures and signs/symptoms to go to the ER. Pt is appropriate for outpatient treatment and follow up. Differential Diagnosis Differential diagnosis: Likely upper respiratory infection, sinusitis, viral infection, bronchitis, influenza and other (strep) Critical Care Time Critical Care Time Critical Care Time: No Discharge Plan Discharge Clinical Impression: Upper respiratory infection Qualifiers: URI type: unspecified viral URI Qualified Code(s): J06.9 - Acute upper respiratory infection, unspecified Patient Disposition: Home Condition: Stable Instructions: Antibiotic Form, Viral Syndrome (ED), Acute Cough (ED) Additional Instructions: Take steroid as prescribed. Keep taking your Zyrtec daily. Over the counter Cough syrup may cause drowsiness; avoid driving or take it at night time. Tylenol every 8 hours as needed for pain Symptomatic treatment includes: rest, fluids, and increase humidity of the air at home. Follow up with your primary care provider in 1 week. Go to the ER for worsening symptoms or concerns. Patient Language: Kinyarwanda Prescriptions: New prednisone 20 mg tablet 40 mg PO DAILY 5 Days Qty: 10 0RF No Action oxybutynin chloride 10 mg tablet extended release 24hr 10 mg PO EVERY OTHER DAY Prilosec 10 mg susp,delayed release for recon 10 mg PO DAILY multivitamin Tablet 1 tablet PO DAILY ferrous sulfate 325 mg (65 mg iron) tablet 325 mg PO BID Qty: 180 1RF vitamin B complex [B Complex-Vitamin B12] Tablet 1 tablet PO DAILY cetirizine 10 mg tablet 10 mg PO DAILY PRN (Reason: Allergy Symptoms) levothyroxine [Synthroid] 125 mcg tablet 125 mcg PO DAILY Qty: 90 1RF (DME) BD Luer-Olya Syringe 3 mL 25 gauge x 1 syringe See Rx Instructions .Route Qty: 20 1RF Rx Instructions: As directed hydrochlorothiazide 12.5 mg tablet 12.5 mg PO DAILY Qty: 90 2RF metformin 1,000 mg tablet 1,000 mg PO BID Qty: 180 2RF glimepiride 4 mg tablet 4 mg PO BID Qty: 180 2RF cyanocobalamin (vitamin B-12) 1,000 mcg/mL solution 1,000 mcg subcut .every 2 weeks Qty: 12 1RF Mounjaro 5 mg/0.5 mL pen injector 5 mg subcut WEEKLY Qty: 2 5RF lisinopril 20 mg tablet 20 mg PO DAILY Qty: 90 3RF Jardiance 10 mg tablet 10 mg PO QAM Qty: 90 3RF fenofibrate 160 mg tablet 160 mg PO DAILY Qty: 90 3RF rosuvastatin 5 mg tablet 5 mg PO DAILY Qty: 90 3RF Follow-up/Referrals: Neo Keller DO [Primary Care Provider] - Time of Disposition: 19:31
[2024-11-21 19:14] LABS: EDCOVIDSCREEN Negative (Negative); EDINFLUASCREEN Negative (Negative); EDINFLUBSCREEN Negative (Negative); EDSTREPNEGPOS1 Negative (Negative)
== END 2024-11-21 19:38 | disposition home or self-care (01) ==
PROVIDERS: PCP Internal Medicine
DX: J06.9 Acute upper respiratory infection, unspecified (principal); Z20.822 Contact with and (suspected) exposure to COVID-19; E11.40 Type 2 diabetes mellitus with diabetic neuropathy, unspecified; Z79.84 Long term (current) use of oral hypoglycemic drugs; Z79.85 Long-term (current) use of injectable non-insulin antidiabetic drugs; I10 Essential (primary) hypertension; E78.00 Pure hypercholesterolemia, unspecified; K21.9 Gastro-esophageal reflux disease without esophagitis; D50.9 Iron deficiency anemia, unspecified; E53.8 Deficiency of other specified B group vitamins; E03.9 Hypothyroidism, unspecified
CPT/HCPCS: 87081; 87426; 87804; 87880; 99213; G0463

== ENCOUNTER 2024-12-17 11:47 | Outpatient (CLI) | payer MEDICARE, BC, SELFPAY ==
--- NOTE | ~2024-12-17 | XR_ITS ---
EXAMINATION: XR chest 2V 12/17/2024 12:09 INDICATION: Cough PROCEDURE: 2 view chest COMPARISON: Comparison to multiple prior studies sequentially, with oldest reviewed study dated 09/26. FINDINGS: The lungs are clear. The cardiomediastinal silhouette is within normal limits. There are no pleural effusions. There is no pneumothorax suspected. IMPRESSION: 1: NO ACUTE CARDIOPULMONARY DISEASE. Reviewed, dictated and finalized at location B.
--- OUTSIDE RECORDS SUMMARY | 2024-12-17 11:52 | XMS_ITS | Referral Summary ---
Author Organization [facility] al Address [address] [place] [address] Care Team Providers Care Supervisor Drilling And Shooting Name Role Phone Aby Franco MD Unavailable Neo Keller DO Primary Care Provider [phone] Encounters Date Type Department Care Team Description 10/03/2024 12:17 PM SAW MAKER - 10/03/2024 11:59 PM SAW MAKER Hospital Encounter [facility] Breast Imaging [facility] ([facility]) [address] [place] [address] Screening mammogram, encounter for Discharge Disposition: Discharge to home or self care from Last 3 Months Social History Tobacco Use Types Packs/Day Years Used Date Smoking Tobacco: Never Assessed Comments Unknown Sex and Gender Information Value Date Recorded Sex Assigned at Not on file Legal Sex Female 2:48 AM SAW MAKER Gender Identity Not on file Sexual Orientation Not on file Plan of Treatment Not on file Procedures Procedure Name Priority Date/Time Associated Diagnosis Comments SCREENING MAMMOGRAM BILATERAL W PB Schedule Routine, Read Routine (OP Routine) 10/03/2024 12:28 PM SAW MAKER Screening mammogram, encounter for from Last 3 Months Results * Screening Mammogram Bilateral W Pb (10/03/2024 12:28 PM SAW MAKER) Anatomical Region Laterality Modality Breast Bilateral Mammography Narrative 10/04/2024 2:30 PM SAW MAKER Mammogram Technique: Bilateral Digital Breast Tomosynthesis, Bilateral C-view 2D Screening mammogram. Views obtained: bilateral craniocaudal and bilateral mediolateral oblique. Computer Aided Detection was performed. Mammogram Findings: The present examination has been compared to prior imaging studies performed at [facility] on 07/05/2021, 08/22/2022 and 09/05/2023. The breasts are heterogeneously dense, which may obscure small masses. There is no suspicious abnormality in either breast. Impression: There is no mammographic evidence of malignancy. Annual screening mammography is recommended. If supplemental screening is desired, breast MRI would be recommended in this patient with heterogeneously dense breasts. OVERALL FINAL ASSESSMENT: BI-RADS CATEGORY 1: Negative. Procedure Note Maki Muniz MD - 10/04/2024 Mammogram Technique: Bilateral Digital Breast Tomosynthesis, Bilateral C-view 2D Screening mammogram. Views obtained: bilateral craniocaudal and bilateral mediolateral oblique. Computer Aided Detection was performed. Mammogram Findings: The present examination has been compared to prior imaging studies performed at [facility] on 07/05/2021, 08/22/2022 and 09/05/2023. The breasts are heterogeneously dense, which may obscure small masses. There is no suspicious abnormality in either breast. Impression: There is no mammographic evidence of malignancy. Annual screening mammography is recommended. If supplemental screeningis desired, breast MRI would be recommended in this patient with heterogeneously dense breasts. OVERALL FINAL ASSESSMENT: BI-RADS CATEGORY 1: Negative. us Self Screening Mammogram IMG MAMMO PROCEDURES Fi nal Result from Last 3 Months Insurance MEDICARE ANTHEM ACCESS MEDICARE ANTHEM ACCESS MEDICARE [facility] FEDERAL Member Subscriber Plan / Payer (Ef fective 2024-Present) Name:Teresa Ragsdale Relation to Subscriber:Spouse Name:Ruben Ragsdale Jolene Date of :1947 Address: [address] [place] [id number] Payer ID:[id number] (NAIC) Group ID:[id number] Type:[facility] Address: [address] [place] [address] Care Teams Supervisor Drilling And Shooting Relationship Specialty Start Date End Date Neo Keller DO [address] [place] [address] PCP - General Internal Medicine 08/29/24 Aby Franco MD [address] [facility] [address] [place] [address] Referring Physician Gynecology 04/22/24
--- OUTSIDE RECORDS SUMMARY | 2024-12-17 11:52 | XMS_ITS | Clinical Summary ---
Author Organization [facility] Address [address] [address] Phone Care Team Providers Care Security Assurance Specialist Name Role Phone Foster Madrigal DO Primary Care Provider Wolf Mendieta DO Unavailable [phone] Allergies Active Allergy Reactions Criticality Noted Date Comments Adhesive Tape Unknown 10/20/2015 Metronidazole Runny Nose,Nausea,Vo miting,Other (see Comments) 03/13/2020 Headache Sulfa Antibiotics Unknown 10/20/2015 Medications estrogens, conjugated, (PREMARIN) 0.45 MG Tablet Take 0.45 mg by mouth daily. Active lisinopril-hydroch lorothiazide (PRINZIDE, ZESTORETIC) 10-12.5 MG Tablet Take 1 Tab by mouth daily. Active oxybutynin (DITROPAN-XL) 10 MG TABLET SR 24 HR Take 10 mg by mouth daily. Active levothyroxine (SYNTHROID) 175 MCG Tablet Take 175 mcg by mouth daily. Active metFORMIN (GLUCOPHAGE) 500 MG Tablet Take 500 mg by mouth 2 times daily (with meals). Active glimepiride (AMARYL) 4 MG Tablet Take 4 mg by mouth every morning. Active Multiple Vitamins-Minerals (MULTIVITAMIN PO) Take by mouth. Active omeprazole (PRILOSEC) 20 MG CAPSULE DELAYED RELEASE Take 20 mg by mouth daily. Active lisinopril (PRINIVIL, ZESTRIL) 10 MG Tablet TK 1 T PO D 02/03/2020 Active metFORMIN (GLUCOPHAGE) 1000 MG Tablet TK 1 T PO BID 01/25/2020 Active Xifaxan 550 MG Tablet TK 1 T PO TID 03/19/2020 Active Calcium Polycarbophil (FIBERCON PO) Take by mouth. Active Active Problems Problem Noted Date Diagnosed Date HTN (hypertension), benign 02/20/2020 Postoperative hypothyroidism 02/20/2020 Interstitial cystitis 02/20/2020 Controlled type 2 diabetes m ellitus without complication, without long-term current use of insulin 02/20/2020 Symptomatic postsurgical menopause 02/20/2020 Gastroesophageal reflux disease 02/20/2020 Immunizations Immunization Administration Dates Next Due Covid-19, Mrna, Lnp-s, PF, 1 00 mcg/0.5 mL Dose (Moderna) 10/09/2020,09/11/2020 Family History Medical History Relation Name Comments Diabetes Brother Colon Cancer Father Prostate Cancer Father Diabetes Mother Cancer Sister Esopageal Diabetes Sister Relation Name Status Comments Brother Father Mother Sister Social History Tobacco Use Types Packs/Day Years Used Date Smoking Tobacco: Never Smokeless Tobacco: Never Tobacco Cessation:Counseling Given: No Alcohol Use Standard Drinks/Week Comments Yes 0 (1 standard drink = 0.6 oz pur e alcohol) Comments No Sex and Gender Information Value Date Recorded Sex Assigned at Not on file Legal Sex Female 9:37 PM CDT Gender Identity Not on file Sexual Orientation Not on file Last Filed Vital Signs Vital Sign Reading Time Taken Comments Blood Pressure 140/80 03/26/2020 10:26 AM CDT Pulse 94 03/26/2020 10:26 AM CDT Temperature 36.8 C (98.2 F) 03/26/2020 10:26 AM CDT Respiratory Rate 16 03/26/2020 10:26 AM CDT Oxygen Saturation 98% 03/26/2020 10:26 AM CDT Inhaled Oxygen Concentration - - Weight 80.7 kg (178 lb) 03/26/2020 10:26 AM CDT Height - - Body Mass Index - - Plan of Treatment Health Maintenance Due Date Last Done Comments Diabetes: Eye Exam 1950 Diabetes: Foot Exam 1948 Diabetes: Hemoglobin A1c 1950 Hepatitis C Virus (HCV) Screening 1950 TdaP Immunization 1948 Diabetes: Nephropathy Screening 1966 Zoster Immunization (1 of 2) 1998 Pneumococcal Immunization (5 0+ years) (2 of 2 - PCV) 05/30/2021 05/30/2020 Respiratory Syncytial Virus (RSV) Immunization (Adult) (1 - 1-dose 75+ series) 2023 Influenza Immunization (#1) 2024 05/30/2020 SARS-COV-2 Immunization (4 - season) 2024 05/24/2021, 10/09/2020, 09/11/2020 Colonoscopy High Risk Discontinued 03/11/2020 , 07/05/2017 Colonoscopy Discontinued 03/11/2020, 07/05/2017 Colorectal Cancer Screening Discontinued Pneumococcal Immunization Combined Discontinued 05/30/2020 Cologuard Discontinued Hepatitis B Immunization Aged Out No longer eligible based on patient's age to complete this topic Immunochemical Fecal Occult Blood Discontinued Meningococcal Immunization (ACWY) Aged Out No longer eligible based on patient's age to complete this topic Rotavirus Immunization Aged Out No lo nger eligible based on patient's age to complete this topic Procedures Procedure Name Priority Date/Time Associated Diagnosis Comments COLONOSCOPY Routine 03/11/2020 from Last 3 Months or Most Recently Relevant to Health Maintenance Results * COLONOSCOPY (03/11/2020) Wolf Mendieta DO PROCEDURE/MINOR SURGICAL ORDERA BLES Final Result from Last 3 Months or Most Recently Relevant to Health Maintenance Insurance MEDICARE Care Teams Security Assurance Specialist Relationship Specialty Start Date End Date Foster Madrigal DO [address] [place] [address] PCP - General Internal Medicine 10/19/15 Wolf Mendieta DO [address] [place] [address] Gastroenterology 10/19/15
--- OUTSIDE RECORDS SUMMARY | 2024-12-17 11:52 | XMS_ITS | Clinical Summary ---
Author Organization [facility] Address [address] [facility] [address] Care Team Providers Care Cobol Application Developer Name Role Phone Lew Madrigalcl [place] DO Primary Care Provider [phone] Source Comments [facility],non-owned Affiliates and Associated Physician Practices is amultiple site organization consisting of ambulatory clinics and hospital sitesin [place], [place], [place] and [place]. This disclosure is being madepursuant to the Care Everywhere program and may not contain all information available regarding this patient. Last updated 18.[facility] Social History Tobacco Use Types Packs/Day Years Used Date Smoking Tobacco: Never Assessed Comments Unknown Sex and Gender Information Value Date Recorded Sex Assigned at Not on file Legal Sex Female 6:32 AM SECURITY ENGINEER Gender Identity Not on file Sexual Orientation Not on file Plan of Treatment Health Maintenance Due Date Last Done Comments BONE DENSITY TESTING 1950 MEDICARE AWV 12 MONTHS 1950 HEPATITIS C SCREENING 09/14/1966 DTAP/TDAP/TD VACCINES (1 - Tdap) 1967 PNEUMOCOCCAL VACCINE 50+ (1 of 1 - PCV) 1998 ZOSTER VACCINE (1 of 2) 1998 Respiratory Syncytial Virus (RSV) Vaccine Pt: or over 60 yrs (1 - 1-dose 75+ series) 2023 COVID-19 VACCINE ( - 2023-2 5 season) 2024 DEPRESSION SCREENING 07/31/2024 INFLUENZA VACCINE (Season Ended) 2025 HEPATITIS B VACCINE Aged Out No longe r eligible based on patient's age to complete this topic HIB VACCINE Aged Out No longer eligi ble based on patient's age to complete this topic HPV VACCINE Aged Out No longer eligi ble based on patient's age to complete this topic MENINGOCOCCAL (Group B) VACC INE SHARED DECISION-MAKING Aged Out No longer eligibl e based on patient's age to complete this topic MENINGOCOCCAL GROUPS A/C/Y/W VACCINE Aged Out No longer eligible b ased on patient's age to complete this topic Insurance [facility] MEDICARE [facility] Care Teams Cobol Application Developer Relationship Specialty Start Date End Date Foster Madrigal DO [address] [facility] [address] [place] [address] PCP - General 03/20/20
--- OUTSIDE RECORDS SUMMARY | 2024-12-17 11:52 | XMS_ITS | Clinical Summary ---
Author Organization [facility] al Address [address] [place] [address] Care Team Providers Care Waste Water Treatment Plant Operator Name Role Phone Aby Franco MD Unavailable Neo Keller DO Primary Care Provider [phone] Encounters Date Type Department Care Team Description 10/03/2024 12:17 PM INTELLIGENCE AGENT - 10/03/2024 11:59 PM INTELLIGENCE AGENT Hospital Encounter [facility] Breast Imaging [facility] ([facility]) [address] [place] [address] Screening mammogram, encounter for Discharge Disposition: Discharge to home or self care from Last 3 Months Social History Tobacco Use Types Packs/Day Years Used Date Smoking Tobacco: Never Assessed Comments Unknown Sex and Gender Information Value Date Recorded Sex Assigned at Not on file Legal Sex Female 2:48 AM INTELLIGENCE AGENT Gender Identity Not on file Sexual Orientation Not on file Plan of Treatment Health Maintenance Due Date Last Done Comments Depression Screening 1948 Fall Risk Assessment 1948 Hepatitis C Screening 1948 Osteoporosis Screening-Bone Density Scan 1948 DTaP/Tdap/Td Vaccine (1 - Tdap) 1959 Hepatitis B Screening 1966 Zoster Vaccine (1 of 2) 1998 Well Visit 65+ 2013 Pneumococcal vaccine 65+ (2 of 2 - PCV) 05/30/2021 05/30/2020 Covid-19 Vaccine (2023-2 5 season) 2024 05/24/2021, 10/09/2020, 09/11/2020 Influenza Vaccine (Season Ended) 2025 05/22/20 21, 05/30/2020 Breast Cancer Screening-Mammogram Discontinued 10/03/2024, 09/05/2023, 08/22/2022, Additional history exists Procedures Procedure Name Priority Date/Time Associated Diagnosis Comments SCREENING MAMMOGRAM BILATERAL W PB Schedule Routine, Read Routine (OP Routine) 10/03/2024 12:28 PM INTELLIGENCE AGENT Screening mammogram, encounter for from Last 3 Months Results * Screening Mammogram Bilateral W Pb (10/03/2024 12:28 PM INTELLIGENCE AGENT) Anatomical Region Laterality Modality Breast Bilateral Mammography Narrative 10/04/2024 2:30 PM INTELLIGENCE AGENT Mammogram Technique: Bilateral Digital Breast Tomosynthesis, Bilateral C-view 2D Screening mammogram. Views obtained: bilateral craniocaudal and bilateral mediolateral oblique. Computer Aided Detection was performed. Mammogram Findings: The present examination has been compared to prior imaging studies performed at [facility] on 07/05/2021, 08/22/2022 and 09/05/2023. [...] compared to prior imaging studies performed at [facility] on 07/05/2021, 08/22/2022 and 09/05/2023. [...] Result from Last 3 Months Insurance MEDICARE [facility] MEDICARE [facility] MEDICARE [facility] FEDERAL Member Subscriber Plan / Payer (Ef fective 2024-Present) Name:Teresa Ragsdale Relation to Subscriber:Spouse Name:Ruben Ragsdale Date of :1947 Address: [address] [place] [id number] Payer ID:[id number] (NAIC) Group ID:[id number] Type:[employer] Address: [address] [place] [address] Care Teams Waste Water Treatment Plant Operator Relationship Specialty Start Date End Date Neo Keller DO [address] [place] [address] PCP - General Internal Medicine 08/29/24 Aby Franco MD [address] [facility] [address] [place] [address] Referring Physician Gynecology 04/22/24
--- OUTSIDE RECORDS SUMMARY | 2024-12-17 11:52 | XMS_ITS | Clinical Summary ---
Author Organization [facility] Address [address] [place] [address] Care Team Providers Care Supervising Airplane Pilot Name Role Phone Unavailable Primary Care Provider Unavailabl e Social History Tobacco Use Types Packs/Day Years Used Date Smoking Tobacco: Never Assessed Comments Unknown Sex and Gender Information Value Date Recorded Sex Assigned at Not on file Legal Sex Female 6:27 PM CDT Gender Identity Not on file Sexual Orientation Not on file Plan of Treatment Health Maintenance Due Date Last Done Comments Hepatitis C 1966 DTaP, Tdap and Td Vaccines ( 1 - Tdap) 1967 Pneumococcal Vaccine: 50+ Ye ars (1 of 1 - PCV) 1998 Zoster Vaccines (1 of 2) 1998 Dexa Scan (General) 2013 RSV Immunization or 60+ Years (1 - 1-dose 75+ series) 2023 COVID-19 Vaccine ( - 2023-2 5 season) 2024 Meningococcal B Vaccine Aged Out No l onger eligible based on patient's age to complete this topic Meningococcal Vaccine Aged Out No bryanna katarzyna eligible based on patient's age to complete this topic RSV Immunizations Under 20 Months Aged Out No longer eligible based on patient's age to complete this topic
== END 2024-12-17 11:48 | disposition home or self-care (01) ==
PROVIDERS: PCP Internal Medicine; Visit Provider Internal Medicine
DX: R05.9 Cough, unspecified (principal)
CPT/HCPCS: 71046

== ENCOUNTER 2025-05-13 10:50 | Outpatient (CLI) | payer MEDICARE, BC, SELFPAY ==
--- NOTE | ~2025-05-13 | DEXA_ITS ---
Bone Density Report Name: ANGELA REYNOLDS Age: 74 Sex: Female Ethnicity: White Date of : 1950 Indication: postmenopausal; screening for osteoporosis; hysterectomy; Referring Provider: JAZMIN, JERILYN Study: Bone densitometry was performed. Exam Date: May 13, 2025 Accession number: [id number] Bone Density: Region BMD T-score Z-score Classification AP Spine(L1-L4) 1.292 2.2 4.7 Normal Femoral Neck (Left) 0.836 -0.1 2.0 Normal Total Hip (Left) 0.911 -0.3 1.6 Normal Femoral Neck (Right) 0.818 -0.3 1.9 Normal Total Hip (Right) 0.925 -0.1 1.7 Normal Total Hip Mean 0.918 -0.2 1.7 Normal World Health Organization criteria for BMD impression classify patients as: Normal (T-score at or above -1.0), Osteopenia (T-score between -1.0 and -2.5), or Osteoporosis (T-score at or below -2.5). 10-year Fracture Risk: FRAX not reported because: All T-scores for Spine Total, Hip Total, Femoral Neck at or above -1.0 Previous Exams: -- Region Exam Age BMD T-score BMD Change BMD Change Date g/cm2 vs Baseline vs Previous -- AP Spine (L1-L4) 05/13/2025 74 1.292 2.2 -3.1%* -3.1%* 12/21/2021 71 1.333 2.6 Total Hip(Left) 05/13/2025 74 0.911 -0.3 -11.1%* -11.1%* 12/21/2021 71 1.025 0.7 Total Hip(Right) 05/13/2025 74 0.925 -0.1 -11.4%* -11.4%* 12/21/2021 71 1.044 0.8 -- *Denotes significance at 95% confidence level, LSC for AP Spine = 0.022 g/cm2, LSC for Total Hip = 0.027 g/cm2 Clinical Information Provided by Patient: Has used the following medications: Vitamin D Has the following medical conditions: Hysterectomy Patient maximum height was 65.5 Menopause Age: 30 No regular weight bearing exercise Drinks caffeinated beverages Onset of menses at age 12 Number of children 1 Impression: The patient has normal bone mass. The BMD for the AP Spine (L1-L4) decreased, changing by -3.1% since the last DXA exam. The BMD for the Total Hip(Left) decreased, changing by -11.1% since the last DXA exam. The BMD for the Total Hip(Right) decreased, changing by -11.4% since the last DXA exam. Discussion: BONE DENSITY IS ABOVE THE MINIMUM DESIRABLE LEVEL AT ALL SKELETAL SITES TESTED. This patient?s bone mineral density is above the minimum desirable level (T-score -1.0 or better) at all sites measured. The patient should follow a healthful lifestyle (good nutrition with adequate calcium and vitamin D, and appropriate weight-bearing exercise). Follow-Up: Consider repeating this study in 3 to 4 years to reassess this patient's status, or sooner if there is some new clinical indication. Reported by: PRESTON on 05/13/2025 11:24:00 AM. Reviewed, dictated and finalized at location A.
== END 2025-05-13 10:51 | disposition home or self-care (01) ==
PROVIDERS: PCP Internal Medicine; Visit Provider Nurse Practitioner
DX: Z13.820 Encounter for screening for osteoporosis (principal); Z78.0 Asymptomatic menopausal state
CPT/HCPCS: 77080